=== PATIENT | male | born 1965 | race Two or more races ===

== ENCOUNTER 2022-11-27 11:30 | Inpatient (IN) | payer OTHER ==
[~2022-11-27] VITALS: Ht 167.6 cm; Wt 73.9 kg
[2022-12-02] MEDS ORDERED: PANTOPRAZOLE SO40 MG (10:56)
[2022-12-02] MEDS ORDERED: FAMOTIDINE40 MG (10:56)
[2022-12-04] MEDS ORDERED: PERCOCET 5-3251 EACH PO (14:45)
[2022-12-04] MEDS ORDERED: LEVSIN/SL0.125 MG SL (14:46)
[2022-12-04] MEDS ORDERED: INTESTINEX680 M1 PO (14:46)
== END 2022-12-04 16:12 | disposition home or self-care (01) | DRG 331 ==
LOC: O/R 12-02 06:20 → SURH 12-02 07:00 → SURG 12-02 14:50
PROVIDERS: ADMIT Surgery; ATTEND Surgery
PROC: 07BB4ZZ Excision of Mesenteric Lymphatic, Percutaneous Endoscopic Approach (ICD-10-PCS; 2022-12-02)
PROC: 0DTF4ZZ Resection of Right Large Intestine, Percutaneous Endoscopic Approach (ICD-10-PCS; principal; 2022-12-02 07:00)
DX: C18.2 Malignant neoplasm of ascending colon (principal); Z20.822 Contact with and (suspected) exposure to COVID-19